=== PATIENT | female | born 1970 | race African-American/Black ===

== ENCOUNTER → 2018-04-03 12:09 | Outpatient (CLI) | payer BC ==
[2018-04-03 13:59] LABS: BASOPHILS 0.2 % (0-2); EOSINOPHILS 2.3 % (0-7); HEMATOCRIT 36.9 % (36.0-48.0); HEMOGLOBIN 12.3 g/dL (12-16); IMMATURE GRANULOCYTES 0.2 % (0-5); LYMPHOCYTES 36.3 % (15-50); MCH 29.2 pg (26.0-34.0); MCHC 33.3 g/dL (31.0-37.0); MCV 87.6 fL (80.0-100.0); MEAN PLATELET VOLUME 11.6 fL (7.4-10.4); MONOCYTES 5.6 % (2-11); NEUTROPHILS 55.4 % (40-80); PLATELET COUNT 279 10x3/uL (130-400); RBC 4.21 10x6/uL (4.00-5.40); RDW 14.1 % (11.5-14.5); WBC 10.2 10x3/uL (4.8-10.8)
[2018-04-03 14:06] LABS: % SATURATION 14 % (15-55); IRON 42 ug/dl (35-150); TOTAL IRON BIND CAPACITY 282 ug/dl (260-445); UNSAT IRON BIND CAPACITY 240 ug/dl (150-375)
[2018-04-03 14:34] LABS: ALBUMIN 3.6 g/dL (3.4-5.0); BILIRUBIN - TOTAL 0.2 mg/dL (0.2-1.3); C-REACTIVE PROTEIN 2.4 mg/dL (0.0-0.9); CALCIUM 8.8 mg/dL (8.5-10.1); CARBON DIOXIDE 27.2 mmol/L (21.0-32.0); POTASSIUM - SERUM 4.2 mmol/L (3.5-5.1); PROTEIN - SERUM 7.8 g/dL (6.4-8.2); T4 THYROXIN - FREE 1.1 ng/dL (0.76-1.46); THYROID STIMULATING HORMONE 2.11 uIU/mL (0.36-3.74)
[2018-04-04 07:33] LABS: FOLLICLE STIMULATING HORMONE 56.4 mIU/mL (()); LUTEINIZING HORMONE 35.6 mIU/mL (()); PROGESTERONE 0.2 ng/mL (()); VITAMIN D 25 HYDROXY 34.9 ng/mL (30.0-100.0)
[2018-04-04 08:21] LABS: T3 - FREE 2.6 pg/mL (2.0-4.4)
[2018-04-06 16:14] LABS: DHEA 27 ng/dL (31-701)
[2018-04-07 11:11] LABS: T3 - REVERSE 22.9 ng/dL (9.2-24.1)
[2018-04-08 20:06] LABS: TESTOSTERONE - FREE <0.2 pg/mL (0.0-4.2); TESTOSTERONE - SERUM <3 ng/dL (8-48)
== END | disposition home or self-care (01) ==
LOC: D.LABREF 12:09
PROVIDERS: Internal Medicine Interventional Cardiology
DX: I10 Essential (primary) hypertension (principal); Z78.0 Asymptomatic menopausal state

== ENCOUNTER → 2018-08-08 14:09 | Outpatient (CLI) | payer BC | END | disposition home or self-care (01) | LOC: D.CT 13:00 | PROVIDERS: ATTEND Nurse Practitioner Adult Health | DX: R59.1 Generalized enlarged lymph nodes (principal) ==

== ENCOUNTER → 2020-07-20 19:07 | Outpatient (CLI) | payer BC ==
[2020-07-20 20:29] LABS: ALBUMIN 4.1 g/dL (3.4-5.0); ANION GAP 11.6 mmol/L (8-16); BILIRUBIN - TOTAL 0.48 mg/dL (0.2-1.3); CALCIUM 8.7 mg/dL (8.5-10.1); CARBON DIOXIDE 30.9 mmol/L (21.0-32.0); CHOL - HDL RATIO 2.8 ratio (2.3-4.1); CREATININE - SERUM 1.1 mg/dL (0.6-1.3); LDL-HDL RATIO 1.6 ratio (1.5-3.5); POTASSIUM - SERUM 4.5 mmol/L (3.5-5.1); PROTEIN - SERUM 7.6 g/dL (6.4-8.2); T4 THYROXINE 3.2 ug/dL (4.7-13.3); THYROID STIMULATING HORMONE 7.72 uIU/mL (0.36-3.74)
== END | disposition home or self-care (01) ==
LOC: D.LABREF 19:07
PROVIDERS: ATTEND Internal Medicine Interventional Cardiology
DX: I10 Essential (primary) hypertension (principal)